=== PATIENT | male | born 1985 | race Caucasian/White ===

== ENCOUNTER 2022-05-31 16:38 | Emergency (ER) | payer OTHER, SELFPAY ==
[2022-05-31 16:56] VITALS: BP 115/70; PULSE 88; RESP 16; TEMP 36.6; O2SAT 97; BMI 32.5
--- NOTE | 2022-05-31 17:03 | DI.RAD.S_ITS ---
PROCEDURE: XR KNEE RT 3V INDICATIONS: possible hamstring injury TECHNIQUE: Three views of the knee were acquired. COMPARISON: None. FINDINGS: Bones: No fractures or dislocations. No suspicious bony lesions. Soft tissues: No joint effusion. No suspicious soft tissue calcifications. IMPRESSION: Normal right knee. Dictated by: Ellen Garcia M.D. on 05/31/2022 at 17:31 Approved by: Ellen Garcia M.D. on 05/31/2022 at 17:31
--- NOTE | 2022-05-31 18:40 | ED.LOWEXIN ---
HPI - Extremity Injury (Lower) <Jay Wharton PA-C - Last Filed: 05/31/22 19:57> General Chief Complaint: Extremity Injury, Lower Stated Complaint: rt hamstring injury Time Seen by Provider: 05/31/22 18:27 Source: patient Mode of arrival: Wheelchair History of Present Illness HPI Narrative: This is a 36-year-old male presents to the emergency department due to right hamstring pain after jumping up and catching a football and landed awkwardly. He states they felt a ?pop? when he landed. Denies any significant knee pain or hip pain. Denies any numbness in the lower extremity. States that he still able to walk and move on the leg causes significant pain when he flexes it too far. Related Data Allergies Allergy/AdvReac Type Severity Reaction Status Date / Time No Known Drug Allergies Allergy Verified 05/31/22 17:00 Review of Systems <Jay Wharton PA-C - Last Filed: 05/31/22 19:57> Review of Systems Narrative: GENERAL: Denies chills, fatigue, malaise, fever, sweats. HEENT: Denies sinus pain, ear pain, sore throat, difficulty swallowing, dizziness. RESPIRATORY: Denies dyspnea, cough, wheezing, hemoptysis, sputum. CARDIOVASCULAR: Denies chest pain, palpitations, orthopnea, edema, GASTROINTESTINAL: Denies nausea, vomiting, abdominal pain, diarrhea, constipation, melena. : Denies dysuria, frequency, incontinence, hematuria, urinary retention. MUSCULOSKELETAL: Right lower extremity pain SKIN: Denies rash, skin lesions, or other NEUROLOGIC: Denies weakness, headache, numbness, change in speech, confusion, seizures, incoordination. PSYCHIATRIC: No concerning psychosocial issues. 12 point review of systems is negative except for those stated above Patient History <Jay Wharton PA-C Last Filed: 05/31/22 19:57> Social History Smoking Status: Never smoker Smoking Status: Never smoker alcohol intake frequency: holidays/special occasions only Substance Use Type: does not use Exam <JOSE Hatch Last Filed: 05/31/22 19:57> Narrative Exam Narrative: GENERAL: Well-developed patient, in mild distress. HEAD: Atraumatic. Normocephalic. EYES: Pupils equal round and reactive. Extraocular motions intact. No scleral icterus. No injection or drainage. ENT: Nose without bleeding, purulent drainage. Throat without erythema, tonsillar hypertrophy or exudate. Airway patent. NECK: Trachea midline. Non tender CARDIOVASCULAR: Regular rate and rhythm without murmurs, gallops, or rubs. RESPIRATORY: Clear to auscultation. Breath sounds equal bilaterally. No wheezes, rales, or rhonchi. GASTROINTESTINAL: Abdomen soft, non-tender, nondistended. EXTREMITIES: Tenderness to palpation to the midshaft of the posterior femur. Worsening pain when patient flexes at the knee. No tenderness to palpation to the bony portion of the right knee BACK: Nontender without deformity or crepitance. No flank tenderness. NEURO: AOx3. SKIN: No rash or erythema of visible areas Initial Vital Signs Initial Vital Signs: Vital Signs Temperature 98 F 05/31/22 16:56 Pulse Rate 88 05/31/22 16:56 Respiratory Rate 16 05/31/22 16:56 Blood Pressure 115/70 05/31/22 16:56 Pulse Oximetry 97 05/31/22 16:56 Oxygen Delivery Method Room Air 05/31/22 16:56 <Noreen Gould DO - Last Filed: 06/01/22 08:32> Initial Vital Signs Initial Vital Signs: Vital Signs Temperature 98 F 05/31/22 16:56 Pulse Rate 88 05/31/22 16:56 Respiratory Rate 16 05/31/22 16:56 Blood Pressure 115/70 05/31/22 16:56 Pulse Oximetry 97 05/31/22 16:56 Oxygen Delivery Method Room Air 05/31/22 16:56 Course <Jay Wharton PA-C - Last Filed: 05/31/22 19:57> Orders Ordered: ED Orders 05/31/22 17:03 XR knee RT 3V Stat Vital Signs Vital signs: Vital Signs - 8 hr 05/31/22 16:56 Temperature 98 F Pulse Rate 88 Respiratory Rate 16 Blood Pressure 115/70 Pulse Oximetry 97 Oxygen Delivery Method Room Air <Noreen Gould DO - Last Filed: 06/01/22 08:32> Orders Ordered: ED Orders 05/31/22 17:03 XR knee RT 3V Stat Vital Signs Vital signs: Vital Signs - 8 hr 05/31/22 16:56 Temperature 98 F Pulse Rate 88 Respiratory Rate 16 Blood Pressure 115/70 Pulse Oximetry 97 Oxygen Delivery Method Room Air MDM - Extremity Injury (Lower) <Jay Wharton PA-C - Last Filed: 05/31/22 19:57> Imaging Data Extremity x-ray #1: Radiologist's Impression: [address] [address] XRay Report Signed Patient: Tim Wilcox MR#: [id number] : 1985 Acct:[id number] Age/Sex: 36 / M Date of Service: 05/31/22 Loc: ED Accession Number: [id number] ?? Procedure: XR knee RT 3V Ordering Provider: Noreen Gould D.O. PROCEDURE:? XR KNEE RT 3V ? INDICATIONS:? possible hamstring injury ? TECHNIQUE:? Three views of the knee were acquired.? ? COMPARISON:? None. ? FINDINGS:? ? Bones:? No fractures or dislocations.? No suspicious bony lesions.? ? Soft tissues:? No joint effusion.? No suspicious soft tissue calcifications.? ? ? IMPRESSION:? Normal right knee. ? ? Dictated by: Ellen Garcia M.D. on 05/31/2022 at 17:31 ? ? Approved by: Ellen Garcia M.D. on 05/31/2022 at 17:31 ? MDM Narrative Medical decision making narrative: MDM * differential diagnosis includes but not limited to femur fracture, knee fracture, hamstring injury, tendon injury * Prior records reviewed: Patient has not been here for similar complaints in the past * My lab interpretation: None * My imgaing interpretation: Right knee x-ray and distal femur negative for fractures * Clinical Decision Rules/Scores evaluated: None * Independent discussions with: None ED Course: This is a 36-year-old presents to the emergency department complaining of suspected muscle strain of his answering. Patient will be given crutches and recommended rest, ice, and elevation and ibuprofen and Tylenol as needed for pain. Knee x-ray negative. Shared Decision Making: Discussed plan with patient who is comfortable with plan Social Considerations: None Disposition: Discharged to home Discharge Plan Departure Patient Disposition: Home Clinical Impression: Muscle strain Instructions: DI for Hamstring Strain, DI for Muscle Strain Activity Restrictions/Additional Instructions: Thank you for coming to the [facility] Emergency Department today. As we discussed your x-ray of your knee and distal femur were negative. I suspect this is a muscle strain. Please follow up with the primary care provider in 2 weeks if is not improved improved and they will be able to order more advanced imaging. Please use ibuprofen and Tylenol as needed for the pain, rest, ice, and elevation were also help for pain. I hope you feel better soon. Stand Alone Forms: Patient Portal/API <Noreen Gould DO - Last Filed: 06/01/22 08:32> Cosign ED Attending Cosignature Attestation: I was immediately available in the department for consultation.
== END 2022-05-31 18:54 | disposition home or self-care (01) ==
PROVIDERS: Emergency Provider Physician Assistant Medical
DX: S86.911A Strain of unspecified muscle(s) and tendon(s) at lower leg level, right leg, initial encounter (principal); X58.XXXA Exposure to other specified factors, initial encounter
CPT/HCPCS: 73562; 99282; 99283